=== PATIENT | female | born 1990 | race African-American/Black ===

== ENCOUNTER 2018-03-24 01:09 | Emergency (ER) | payer OTHER ==
[2018-03-24] MEDS ORDERED: SILVER SULFADIAZINE 1% CR 50 GM JAR TOPICAL ONE (01:18)
[2018-03-24] MEDS ORDERED: ACETAMINOPHEN/HYDROcodone 325 MG/5 MG TAB PO ONE (01:18)
[2018-03-24] MEDS ORDERED: TETANUS/DIPHTHERIA TOXOID ADULT 0.5 ML VIAL IM ONE (01:18)
[2018-03-24] MEDS ORDERED: NORC5TAB PO (03:22)
[2018-03-24] MEDS ORDERED: SILV1CRE20 TOPICAL (03:22)
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
== END 2018-03-24 04:16 | disposition home or self-care (01) ==
LOC: NEPC 01:09
DX: T22.212A Burn of second degree of left forearm, initial encounter (principal); T22.211A Burn of second degree of right forearm, initial encounter; T25.222A Burn of second degree of left foot, initial encounter; V49.88XA Car occupant (driver) (passenger) injured in other specified transport accidents, initial encounter; Y92.410 Unspecified street and highway as the place of occurrence of the external cause
CPT/HCPCS: 16025